=== PATIENT | male | born 1960 | race Caucasian/White ===

== ENCOUNTER 2020-10-21 13:51 | Emergency (ER) | payer MEDICARE, OTHER ==
[~2020-10-21 13:51] MED LIST: ALPHAGAN 020 DROPS/M OU; BACLOFEN 10MG T10 MG PO; BUMETANIDE2 MG PO; BUMEX1 MG PO; CATAPRES0.1 MG PO; CEFDINIR300 MG PO; COREG 6.25MG6.25 MG PO; COSOPT EYE DROP10 ML OU; DESENEX85 GM TOP; FLOMAX 0.4 MG0.4 MG PO; GLIPIZIDE10 MG PO; HUMALOG100 UNIT/1 SQ; KLOR-CON M 1010 MEQ PO; LANSOPRAZOLE15 MG PO; LANTUS100 UNIT/1 SQ; LASIX20 MG PO; LASIX40 MG PO; LEVAQUIN750 MG PO; LEXAPRO20 MG PO; METOLAZONE 5MG T5 M1 PO; NEURONTIN300 MG PO; NORVASC5 MG PO; OMEPRAZOLE40 MG PO; PEPCID AC20 MG PO; PHOSLO667 MG PO; PREVACID30 M1 PO; PRINIVIL20 MG PO; ROCEPHIN 1GM1 GM IV; SYNTHROID50 MCG PO; TOUJEO SQ; VITAMIN D-40010 MCG PO; ZESTRIL40 MG PO
[2020-10-21 15:42] LABS: BASOPHIL 0.3 % (0-2); EOSINOPHIL 13.4 % (0-5); HCT 28.5 % (42.0-52.0); LYMPHOCYTE 14.7 % (15-48); MCH 32.1 pg (25.0-31.0); MCHC 31.6 g/dL (32.0-36.0); MCV 101.8 fL (78.0-100.0); MONOCYTE 6.8 % (0-12); MPV 10.5 fL (6.0-9.5); NEUTROPHIL 64.2 % (41-80); NRBC 0; PLT 138 K/uL (150-400); RDW 13.8 % (11.5-14.0); WBC 6.7 K/uL (4.0-10.5)
[2020-10-21 16:06] LABS: ALBUMIN 3.3 g/dL (3.4-5.0); BILIRUBIN - TOTAL 0.2 mg/dL (0.2-1.0); CREATININE 7.96 mg/dL (0.67-1.17); GLOBULIN (CALCULATION) 3.5 g/dL; TOTAL PROTEIN 6.8 g/dL (6.4-8.2)
[2020-10-21 18:40] LABS: CORONAVIRUS 2019 SARS-COV-2 NEGATIVE (NEGATIVE); INFLUENZA A NAA NEGATIVE (NEGATIVE)
[2020-10-21 19:32] LABS: CREATININE 7.96 mg/dL (0.67-1.17)
[2020-10-21 19:38] LABS: POTASSIUM 7.4 mmol/L (3.5-5.1)
== END 2020-10-21 21:50 | disposition other institution (70) ==
LOC: FER 13:51
PROVIDERS: Emergency Medicine
DX: E87.5 Hyperkalemia (principal); E03.9 Hypothyroidism, unspecified; R19.7 Diarrhea, unspecified; E66.01 Morbid (severe) obesity due to excess calories; I12.9 Hypertensive chronic kidney disease with stage 1 through stage 4 chronic kidney disease, or unspecified chronic kidney disease; E11.22 Type 2 diabetes mellitus with diabetic chronic kidney disease; N18.9 Chronic kidney disease, unspecified; Z89.611 Acquired absence of right leg above knee
CPT/HCPCS: 36415; 71045; 80048; 80053; 82150; 83605; 84145; 84443; 84484; 85025; 87040; 93005; J0610; J7060; U0002